=== PATIENT | male | born 1990 | race Caucasian/White ===

== ENCOUNTER 2020-07-23 16:06 | Inpatient (IN) | payer MEDICAID ==
[~2020-07-23] VITALS: Ht 180.3 cm; Wt 86.4 kg
[~2020-07-23 16:06] MED LIST: DIAZ-351 PO
[2020-07-23] MEDS ORDERED: morphine 4 MG/ML inj SYRINge IV ONE ×2 (17:30→20:05)
[2020-07-23] MEDS ORDERED: ondansetron/PF 4mg/2ml inj IV ONE (17:30)
[2020-07-23] MEDS ORDERED: heparin 10,000 units/1 ML INJ IV PRN ×2 (17:40→22:10)
[2020-07-23] MEDS ORDERED: heparin 10,000 units/1 ML INJ IV ONE ×2 (17:40→17:55)
[2020-07-23 18:02] LABS: BASOPHILS # (AUTO) 0.1 X10'3 (0-0.2); BASOPHILS % (AUTO) 0.9 % (0-1); EOSINOPHILS # (AUTO) 0.2 X10'3 (0-0.9); EOSINOPHILS % (AUTO) 2.5 % (0-6); HEMATOCRIT 47.3 % (42.0-52.0); LYMPHOCYTES # (AUTO) 2.7 X10'3 (1.1-4.8); LYMPHOCYTES % (AUTO) 31.3 % (21-51); MEAN CORPUSCULAR HGB CONC 33.7 g/dL (33.0-36.5); MEAN CORPUSCULAR VOLUME 88.9 FL (78-98); MEAN PLATELET VOLUME 8.5 FL (7.4-10.4); MONOCYTES # (AUTO) 0.8 X10'3 (0-0.9); MONOCYTES % (AUTO) 9.4 % (2-12); NEUTROPHILS # (AUTO) 4.8 X10'3 (1.8-7.7); NEUTROPHILS % (AUTO) 55.9 % (42-75); PLATELET COUNT 236 X10'3 (140-440); RED BLOOD COUNT 5.32 X10'6 (4.70-6.10); RED CELL DISTRIBUTION WIDTH 12.5 % (11.5-14.5); WHITE BLOOD COUNT 8.6 X10'3 (4.5-11.0)
[2020-07-23 18:15] LABS: ALANINE AMINOTRANSFERASE 29 U/L (12-78); ALBUMIN 4.1 G/DL (3.4-5.0); ALBUMIN/GLOBULIN RATIO 1.4 (1.1-1.5); ALKALINE PHOSPHATASE 58 IU/L (46-116); ANION GAP 8 (8-16); ASPARTATE AMINO TRANSFERASE 14 U/L (10-37); BILIRUBIN,TOTAL 1.2 MG/DL (0.1-1.0); BLOOD UREA NITROGEN 13 MG/DL (7-18); BUN/CREATININE RATIO 12.1 (5.4-32.0); CALCIUM 8.7 MG/DL (8.5-10.1); CHLORIDE 104 MMOL/L (99-107); CREATININE 1.07 MG/DL (0.60-1.10); GLUCOSE 90 MG/DL (70-104); POTASSIUM 3.8 MMOL/L (3.5-5.1); SODIUM 139 MMOL/L (135-145); TOTAL CARBON DIOXIDE 27.4 MMOL/L (24-32); eGFR 82 ML/MIN
[2020-07-23 18:21] LABS: CREATINE KINASE 108 U/L (39-308); MAGNESIUM 1.9 MG/DL (1.5-2.4)
[2020-07-23] MEDS ORDERED: iohexol 350MG/ML 100ml bottle IV ONE ×2 (18:41→22:18)
[2020-07-23] MEDS: heparin 25,000 UNIT/250ml bag 250 ML IV SCH (18:42)
[2020-07-23] MEDS ORDERED: HYDR-4383 PO (19:10)
[2020-07-23] MEDS ORDERED: temazepam 15mg capsule PO PRN (21:00)
[2020-07-23] MEDS ORDERED: potassium CL 10mEq/100ml bag 100 ML IV PRN ×2 (22:10)
[2020-07-23] MEDS ORDERED: heparin 25,000 UNIT/250ml bag 250 ML IV SCH (22:10)
[2020-07-23] MEDS ORDERED: ondansetron/PF 4mg/2ml inj IV PRN (22:10)
[2020-07-23] MEDS ORDERED: potassium Cl 20 mEq SR tablet PO PRN (22:10)
[2020-07-23] MEDS ORDERED: magnesium 4gm in 100ml NS 100 ML IV PRN (22:10)
[2020-07-23] MEDS ORDERED: magnesium Cl slow-release 64mg tablet PO PRN (22:10)
[2020-07-23] MEDS ORDERED: HYDROcodone/acetaminophen 5mg/325mg tablet PO PRN (22:10)
[2020-07-23] MEDS ORDERED: morphine 2 MG/ML inj. syringe IV PRN (22:10)
[2020-07-23] MEDS ORDERED: acetaminophen 325mg tablet PO PRN ×2 (22:10)
[2020-07-23] MEDS ORDERED: docusate sod 100mg capsule PO PRN (22:10)
[2020-07-23] MEDS ORDERED: magnesium 2GM in 50ml NS 50 ML IV PRN (22:10)
[2020-07-23] MEDS: normal saline 1000ml 1,000 ML IV SCH (22:38)
[2020-07-23 23:20] VITALS: BP 117/78
[2020-07-24] MEDS: HYDROcodone/acetaminophen 10/325mg tab PO PRN ×3 (00:25→15:54)
[2020-07-24 01:10] LABS: BASOPHILS # (AUTO) 0.1 X10'3 (0-0.2); BASOPHILS % (AUTO) 0.8 % (0-1); EOSINOPHILS # (AUTO) 0.2 X10'3 (0-0.9); HEMOGLOBIN 15.4 g/dl (14.0-17.9); LYMPHOCYTES # (AUTO) 3.2 X10'3 (1.1-4.8); LYMPHOCYTES % (AUTO) 41.8 % (21-51); MEAN CORPUSCULAR HEMOGLOBIN 30.9 PG (27.0-31.0); MEAN CORPUSCULAR HGB CONC 34.3 g/dL (33.0-36.5); MEAN PLATELET VOLUME 8.5 FL (7.4-10.4); MONOCYTES # (AUTO) 0.7 X10'3 (0-0.9); MONOCYTES % (AUTO) 9.6 % (2-12); NEUTROPHILS # (AUTO) 3.4 X10'3 (1.8-7.7); NEUTROPHILS % (AUTO) 44.8 % (42-75); PLATELET COUNT 204 X10'3 (140-440); RED CELL DISTRIBUTION WIDTH 12.7 % (11.5-14.5); WHITE BLOOD COUNT 7.6 X10'3 (4.5-11.0)
[2020-07-24 01:25] LABS: ALANINE AMINOTRANSFERASE 26 U/L (12-78); ALBUMIN 3.6 G/DL (3.4-5.0); ALBUMIN/GLOBULIN RATIO 1.5 (1.1-1.5); ALKALINE PHOSPHATASE 55 IU/L (46-116); ANION GAP 7 (8-16); ASPARTATE AMINO TRANSFERASE 13 U/L (10-37); BILIRUBIN,TOTAL 1.6 MG/DL (0.1-1.0); BLOOD UREA NITROGEN 11 MG/DL (7-18); BUN/CREATININE RATIO 9.9 (5.4-32.0); CALCIUM 8.5 MG/DL (8.5-10.1); CHLORIDE 105 MMOL/L (99-107); CREATININE 1.11 MG/DL (0.60-1.10); GLUCOSE 123 MG/DL (70-104); MAGNESIUM 1.9 MG/DL (1.5-2.4); POTASSIUM 3.4 MMOL/L (3.5-5.1); SODIUM 139 MMOL/L (135-145); TOTAL CARBON DIOXIDE 27.3 MMOL/L (24-32); eGFR 79 ML/MIN
[2020-07-24 01:40] VITALS: BP 90/52
[2020-07-24] MEDS ORDERED: pantoprazole 40 MG vial IV ONE (02:15)
[2020-07-24 02:57] LABS: TROPONIN I < 0.04 NG/ML (0.0-0.05)
[2020-07-24] MEDS: heparin 25,000 UNIT/250ml bag 250 ML IV SCH ×2 (03:49→15:26)
[2020-07-24] MEDS: morphine 2 MG/ML inj. syringe IV PRN ×2 (05:20→19:06)
--- NOTE | 2020-07-24 06:20 | NUR ---
Patient in room ORTHO 4013. I have received report from Marisol SIEGEL and had the opportunity to ask questions and assume patient care.
[2020-07-24 06:31] VITALS: BP 114/70
--- NOTE | 2020-07-24 06:31 | NUR ---
Patient in room ORTHO 4013. I have received report from Marisol SIEGEL and had the opportunity to ask questions and assume patient care.
[2020-07-24 06:44] LABS: PARTIAL THROMBOPLASTIN TIME 49 SECONDS (22-32)
[2020-07-24] MEDS: potassium Cl 20 mEq SR tablet PO PRN ×3 (07:07→15:56)
[2020-07-24] MEDS: K and/or MAG REPLACEMENT MC SCH ×2 (07:10→20:00)
[2020-07-24] MEDS: normal saline 1000ml 1,000 ML IV SCH ×3 (09:13→19:09)
--- NOTE | 2020-07-24 10:00 | NUR ---
Spoke with Dr. Baer(pt's surgeon who did meniscus repair at beginning of July 2020) over the phone with pt's phone on speaker in pts room. Discussed update on whats going on with pt. Dr. Baer stated he agrees with plan of care and that pt needs to continue to do ROM exercises, nonweightbearing to left leg, and to followup with him in office in 6 weeks.
[2020-07-24 11:33] VITALS: BP 132/75
--- NOTE | 2020-07-24 15:26 | NUR ---
PTT 47 and is therapeutic, no rate change required.
[2020-07-24 18:00] VITALS: BP 116/67
--- NOTE | 2020-07-24 18:06 | NUR ---
Student documentation: I have reviewed all interventions, assessments performed and documented by Allison Student Nurse. Student Medication Administration: For this medication-pass time frame, all medication were reviewed, dispensed, administered and documented per hospital policy by Allison Student Nurse.
--- NOTE | 2020-07-24 18:37 | NUR ---
Problems reprioritized. Patient report given, questions answered & plan of care reviewed with Judith SIEGEL.
--- NOTE | 2020-07-24 18:40 | NUR ---
Patient in room ORTHO 4013. I have received report from ROBBIN Lopez and had the opportunity to ask questions and assume patient care. Addendum: 07/24/20 at 1840 by Terri Singh RN Amended: Links added.
[2020-07-24 22:00] VITALS: BP 121/53
[2020-07-25] MEDS: HYDROcodone/acetaminophen 10/325mg tab PO PRN ×2 (04:33→09:43)
--- NOTE | 2020-07-25 06:28 | NUR ---
Problems reprioritized. Patient report given, questions answered & plan of care reviewed with Kasie Grijalva.
[2020-07-25 06:30] LABS: BASOPHILS % (AUTO) 0.6 % (0-1); EOSINOPHILS # (AUTO) 0.2 X10'3 (0-0.9); EOSINOPHILS % (AUTO) 3.6 % (0-6); HEMATOCRIT 44.9 % (42.0-52.0); HEMOGLOBIN 15.3 g/dl (14.0-17.9); LYMPHOCYTES % (AUTO) 34.2 % (21-51); MEAN CORPUSCULAR HEMOGLOBIN 30.9 PG (27.0-31.0); MEAN PLATELET VOLUME 8.7 FL (7.4-10.4); MONOCYTES # (AUTO) 0.6 X10'3 (0-0.9); MONOCYTES % (AUTO) 10.2 % (2-12); NEUTROPHILS % (AUTO) 51.4 % (42-75); PLATELET COUNT 203 X10'3 (140-440); RED BLOOD COUNT 4.93 X10'6 (4.70-6.10); RED CELL DISTRIBUTION WIDTH 12.8 % (11.5-14.5); WHITE BLOOD COUNT 5.9 X10'3 (4.5-11.0)
[2020-07-25 06:35] VITALS: BP 107/65
--- NOTE | 2020-07-25 06:39 | NUR ---
Patient in room ORTHO 4013. I have received report from PRINCESS SIEGEL and had the opportunity to ask questions and assume patient care.
[2020-07-25 06:54] LABS: ALANINE AMINOTRANSFERASE 27 U/L (12-78); ALBUMIN 3.5 G/DL (3.4-5.0); ALBUMIN/GLOBULIN RATIO 1.3 (1.1-1.5); ALKALINE PHOSPHATASE 48 IU/L (46-116); ANION GAP 7 (8-16); ASPARTATE AMINO TRANSFERASE 14 U/L (10-37); BILIRUBIN,TOTAL 1.8 MG/DL (0.1-1.0); BLOOD UREA NITROGEN 11 MG/DL (7-18); BUN/CREATININE RATIO 11.2 (5.4-32.0); CALCIUM 8.9 MG/DL (8.5-10.1); CHLORIDE 107 MMOL/L (99-107); CREATININE 0.98 MG/DL (0.60-1.10); GLUCOSE 86 MG/DL (70-104); MAGNESIUM 1.9 MG/DL (1.5-2.4); POTASSIUM 3.7 MMOL/L (3.5-5.1); SODIUM 142 MMOL/L (135-145); TOTAL CARBON DIOXIDE 28.5 MMOL/L (24-32); TOTAL PROTEIN 6.1 G/DL (6.4-8.2); eGFR > 90 ML/MIN
[2020-07-25] MEDS: morphine 2 MG/ML inj. syringe IV PRN (07:23)
[2020-07-25] MEDS: K and/or MAG REPLACEMENT MC SCH (08:00)
[2020-07-25 10:01] VITALS: BP 132/67
[2020-07-25] MEDS ORDERED: APIX5TAB3 PO (10:22)
--- NOTE | 2020-07-25 12:22 | NUR ---
PAGER ID: [phone] MESSAGE: BRYN BROWN [phone] RE: TEO CALLED MEDICATION TO PHARMACY AND NEEDED CLARIFICATION THANKS BRYN. Addendum: 07/25/20 at 1246 by Zhen Falk RN CONFIRMED WITH ON DISCHARGE MEDICATION DOSING
--- NOTE | 2020-07-25 13:30 | NUR ---
PATIENT DISCHARGED WITH ONE NEW MEDICATION. PATIENT SHOWED VERBAL UNDERSTANDING OF MEDICATION, PATIENT EDUCATED ON LOU DOWN ON DOSING. PATIENT GIVEN INFORMATION ON CONDITION. PATIENT IV TAKEN OUT AT DISCHARGE AND PRESSURE HELD. CANULA WAS WHOLE AND INTACT UPON REMOVAL. PATIENT LEFT HOSPITAL IN WHEELCHAIR AND PRIVATE VEHICLE WITH ALL BELONGINGS.
[2020-07-26] MEDS ORDERED: APIX5TAB3 PO (00:58)
== END 2020-07-25 13:00 | disposition home or self-care (01) | DRG 197 ==
LOC: ER 16:06 → ED HOLD 22:10 → ORTHO 4S 23:30
PROVIDERS: ADMIT Internal Medicine; ATTEND Family Medicine
PROC: B42G1ZZ Computerized Tomography (CT Scan) of Left Lower Extremity Arteries using Low Osmolar Contrast (ICD-10-PCS; principal; 2020-07-23)
PROC: B32T1ZZ Computerized Tomography (CT Scan) of Left Pulmonary Artery using Low Osmolar Contrast (ICD-10-PCS; 2020-07-23)
PROC: B3201ZZ Computerized Tomography (CT Scan) of Thoracic Aorta using Low Osmolar Contrast (ICD-10-PCS; 2020-07-23)
PROC: B32S1ZZ Computerized Tomography (CT Scan) of Right Pulmonary Artery using Low Osmolar Contrast (ICD-10-PCS; 2020-07-23)
DX: I82.402 Acute embolism and thrombosis of unspecified deep veins of left lower extremity (principal); F12.90 Cannabis use, unspecified, uncomplicated; Z87.891 Personal history of nicotine dependence
CPT/HCPCS: 36415; 71045; 71275; 73706; 80053; 82550; 83735; 83880; 84484; 85025; 85610; 85730; 87081; 93005; 93306; 93971; 96374; 96375; 96376; 97116; 97161; 97530; 99285; C9113; G0378; J1644; J2270; J2405; J7030; Q9967